=== PATIENT | female | born 1940 | race Two or more races ===

== ENCOUNTER 2018-11-07 09:20 | Day surgery (SDC) | payer MEDICARE, OTHER, MEDICAID ==
[2018-11-07] MEDS ORDERED: FENTAnyl 50 MCG/ML VIAL (11:43)
[2018-11-07] MEDS ORDERED: PROPOFOL 20 ML (11:43)
[2018-11-07] MEDS ORDERED: DEXTROSE 50% 50 ML SYRINGE ×2 (11:59→12:00)
[2018-11-07] MEDS ORDERED: ONDANSETRON 4 MG INJ IV (12:00)
== END 2018-11-07 16:37 | disposition home or self-care (01) ==
LOC: GIL 09:20
DX: R19.4 Change in bowel habit (principal); K64.8 Other hemorrhoids; I10 Essential (primary) hypertension; E11.9 Type 2 diabetes mellitus without complications
CPT/HCPCS: 45378; 82962